=== PATIENT | female | born 2000 | race Caucasian/White ===

== ENCOUNTER 2025-09-15 06:43 | Emergency (ER) | payer SELFPAY ==
[~2025-09-15] VITALS: Ht 172.7 cm; Wt 58.6 kg
[2025-09-15 06:46] VITALS: BP 116/70; TEMP 97; O2SAT 100
[2025-09-15] MEDS ORDERED: AMOX875T2 PO (08:10)
== END 2025-09-15 08:18 | disposition home or self-care (01) ==
LOC: M ED 06:43
DX: J01.80 Other acute sinusitis (principal); Z79.2 Long term (current) use of antibiotics